=== PATIENT | male | born 2000 | race Caucasian/White ===

== ENCOUNTER 2018-07-09 23:39 | Emergency (ER) | payer OTHER ==
--- NOTE | 2018-07-10 00:02 | EDPHY ---
H & P Stated Complaint: fell about 8ft and hurt mid back Time Seen by Provider: 07/10/18 00:02 HPI/ROS: HPI CHIEF COMPLAINT: Right flank pain. Fall 8 ft. HISTORY OF PRESENT ILLNESS: This patient 17-year-old male, otherwise healthy, presents emergency room with right flank pain. Patient states that he was walking and walked over a covered window well it had a rug overt he did not realize this. He fell approximately 7 to 8 ft landing on his back. At the bottom of the window well was a cinder block. He struck the right CVA region with this. He has focal pain over his right CVA region. Denies chest pain shortness of breath. Denies headache. Denies neck pain. Denies extremity pain. Past Medical History: Denies significant medical history Past Surgical History: Denies significant surgical Social History: Denies drugs alcohol tobacco. Family History: Noncontributory. ROS REVIEW OF SYSTEMS: 10 Systems were reviewed and negative with the exception of the elements mentioned in the history of present illness. Exam Constitutional triage nursing summary reviewed, vital signs reviewed, awake/ alert. Eyes normal conjunctivae and sclera, EOMI, PERRLA. HENT normal inspection, atraumatic, moist mucus membranes, no epistaxis, neck supple/ no meningismus, no raccoon eyes. Respiratory clear to auscultation bilaterally, normal breath sounds, no respiratory distress, no wheezing. Cardiovascular rate normal, regular rhythm, no murmur, no edema, distal pulses normal. Gastrointestinal soft, non-tender, no rebound, no guarding, normal bowel sounds, no distension, no pulsatile mass. Genitourinary mild tender palpation right CVA region. Musculoskeletal no midline vertebral tenderness, full range of motion, no calf swelling, no tenderness of extremities, no meningismus, good pulses, neurovascularly intact. Skin pink, warm, & dry, no rash, skin atraumatic. Neurologic awake, alert and oriented x 3, AAOx3, moves all 4 extremities equally, motor intact, sensory intact, CN II-XII intact, normal cerebellar, normal vision, normal speech. Psychiatric normal mood/affect. Heme/Lymph/Immune no lymphadenopathy. Differential Diagnosis: Includes but is not limited to in a particular order acute abdominal injury solid organ injury, kidney injury, kidney laceration, musculoskeletal injury, soft tissue injury, contusion Medical Decision Making: Plan for this patient IV establishment IV fluid bolus , check basic blood work, urinalysis, CT scan abdomen pelvis with IV contrast for trauma rule out kidney laceration. Re-evaluation: CT scan abdomen pelvis with IV contrast shows no evidence of acute traumatic injury specifically no kidney laceration. No evidence of intra-abdominal injury. Patient's urinalysis pending he initially gives a dirty urine catch. 0211: Patient re-evaluated resting comfortably at this time. Patient in no acute distress. Has some soft tissue swelling to his right back. Recommend ice , anti-inflammatory pain medicine. Additionally a limited supply of Soquel will be given for severe pain. Urinalysis reviewed. The 1st urinalysis was dirty catch. 2nd urinalysis shows no blood. CT scan abdomen pelvis with IV contrast shows no evidence of acute trauma. Plan for ice, rest, anti-inflammatory pain medicine, narcotic pain medicine. Return precautions discussed. Source: Patient - Personal History Current Tetanus/Diphtheria Vaccine: Yes Current Tetanus Diphtheria and Acellular Pertussis (TDAP): Yes - Medical/Surgical History Hx Asthma: No Hx Chronic Respiratory Disease: No Hx Diabetes: No Hx Cardiac Disease: No Hx Renal Disease: No Hx Cirrhosis: No Hx Alcoholism: No Hx HIV/AIDS: No Hx Splenectomy or Spleen Trauma: No Other PMH: tonsillectomy - Social History Smoking Status: Never smoked Constitutional: Initial Vital Signs Temperature (C) 37.3 C 07/09/18 23:41 Heart Rate 92 07/09/18 23:41 Respiratory Rate 16 07/09/18 23:41 Blood Pressure 121/74 H 07/09/18 23:41 O2 Sat (%) 96 07/09/18 23:41 O2 Delivery Mode Room Air Allergies/Adverse Reactions: No Known Allergies Allergy (Unverified 07/09/18 23:45) Home Medications: Medication Instructions Recorded Hydrocodone/APAP 5/325 [Soquel 1 - 2 tab PO Q4H PRN #10 tab 07/10/18 5/325] Ibuprofen [Motrin (*)] 800 mg PO Q6-8PRN #10 tab 07/10/18 Medical Decision Making - Data Points Laboratory Results: Laboratory Results 07/10/18 00:17 07/10/18 00:17 07/10/18 07/10/18 07/10/18 02:10 01:45 00:17 WBC RBC Hgb Hct MCV MCH MCHC RDW Plt Count MPV Neut % (Auto) Lymph % (Auto) [place] % (Auto) Eos % (Auto) Baso % (Auto) Nucleat RBC Rel Count Absolute Neuts (auto) Absolute Lymphs (auto) Absolute Monos (auto) Absolute Eos (auto) Absolute Basos (auto) Absolute Nucleated RBC Immature Gran % Immature Gran # PT INR APTT Sodium 141 mEq/L mEq/L (135-145) Potassium 4.6 mEq/L mEq/L (3.3-5.0) Chloride 102 mEq/L mEq/L (97-110) Carbon Dioxide 28 mEq/l mEq/l (22-31) Anion Gap 11 mEq/L mEq/L (8-16) BUN 20 mg/dL mg/dL (7-23) Creatinine 1.0 mg/dL mg/dL (0.7-1.3) Estimated GFR > 60 Glucose 103 mg/dL H mg/dL (70-100) Calcium 10.3 mg/dL mg/dL (8.5-10.4) Total Bilirubin 0.9 mg/dL mg/dL (0.1-1.4) Conjugated Bilirubin 0.2 mg/dL mg/dL (0.0-0.5) Unconjugated Bilirubin 0.7 mg/dL mg/dL (0.0-1.1) AST 56 IU/L IU/L (17-59) ALT 63 IU/L IU/L (21-72) Alkaline Phosphatase 90 IU/L IU/L (38-126) Total Protein 8.3 g/dL H g/dL (6.3-8.2) Albumin 4.7 g/dL g/dL (3.5-5.0) Lipase 140 IU/L IU/L (23-300) Urine Color YELLOW YELLOW Urine Appearance HAZY HAZY Urine pH 5.0 5.0 (5.0-7.5) (5.0-7.5) Ur Specific [place] > 1.060 H > 1.035 H (1.002-1.030) (1.002-1.030) Urine Protein NEGATIVE 1+ H (NEGATIVE) (NEGATIVE) Urine Ketones TRACE H TRACE H (NEGATIVE) (NEGATIVE) Urine Blood NEGATIVE NEGATIVE (NEGATIVE) (NEGATIVE) Urine Nitrate NEGATIVE NEGATIVE (NEGATIVE) (NEGATIVE) Urine Bilirubin NEGATIVE NEGATIVE (NEGATIVE) (NEGATIVE) Urine Urobilinogen 2.0 EU H EU 2.0 EU H EU (0.2-1.0) (0.2-1.0) Ur Leukocyte Esterase NEGATIVE TRACE H (NEGATIVE) (NEGATIVE) Urine RBC 10-15 /hpf H /hpf (0-3) Urine WBC 25-50 /hpf H /hpf (0-3) Ur Epithelial Cells NONE SEEN /lpf /lpf (NONE-1+) Urine Mucus 3+ /lpf H /lpf (NONE-1+) Urine Glucose NEGATIVE NEGATIVE (NEGATIVE) (NEGATIVE) 07/10/18 07/10/18 00:17 00:17 WBC 10.28 10^3/uL H 10^3/uL (3.80-9.50) RBC 5.35 10^6/uL 10^6/uL (4.40-6.38) Hgb 15.7 g/dL g/dL (13.7-17.5) Hct 45.4 % % (40.0-51.0) MCV 84.9 fL fL (81.5-99.8) MCH 29.3 pg pg (27.9-34.1) MCHC 34.6 g/dL g/dL (32.4-36.7) RDW 12.6 % % (11.5-15.2) Plt Count 293 10^3/uL 10^3/uL (150-400) MPV 9.7 fL fL (8.7-11.7) Neut % (Auto) 69.3 % % (39.3-74.2) Lymph % (Auto) 22.5 % % (15.0-45.0) [place] % (Auto) 7.3 % % (4.5-13.0) Eos % (Auto) 0.1 % L % (0.6-7.6) Baso % (Auto) 0.4 % % (0.3-1.7) Nucleat RBC Rel Count 0.0 % % (0.0-0.2) Absolute Neuts (auto) 7.13 10^3/uL H 10^3/uL (1.70-6.50) Absolute Lymphs (auto) 2.31 10^3/uL 10^3/uL (1.00-3.00) Absolute Monos (auto) 0.75 10^3/uL 10^3/uL (0.30-0.80) Absolute Eos (auto) 0.01 10^3/uL L 10^3/uL (0.03-0.40) Absolute Basos (auto) 0.04 10^3/uL 10^3/uL (0.02-0.10) Absolute Nucleated RBC 0.00 10^3/uL 10^3/uL (0-0.01) Immature Gran % 0.4 % % (0.0-1.1) Immature Gran # 0.04 10^3/uL 10^3/uL (0.00-0.10) PT 14.9 SEC SEC (12.0-15.0) INR 1.15 (0.83-1.16) APTT 31.2 SEC SEC (23.0-38.0) Sodium Potassium Chloride Carbon Dioxide Anion Gap BUN Creatinine Estimated GFR Glucose Calcium Total Bilirubin Conjugated Bilirubin Unconjugated Bilirubin AST ALT Alkaline Phosphatase Total Protein Albumin Lipase Urine Color Urine Appearance Urine pH Ur Specific [place] Urine Protein Urine Ketones Urine Blood Urine Nitrate Urine Bilirubin Urine Urobilinogen Ur Leukocyte Esterase Urine RBC Urine WBC Ur Epithelial Cells Urine Mucus Urine Glucose Medications Given: Discontinued Medications Hydromorphone HCl (Dilaudid) 0.5 mg IVP EDNOW ONE Stop: 07/10/18 00:11 Last Admin: 07/10/18 00:25 Dose: 0.5 mg Sodium Chloride (Ns) 1,000 mls @ 0 mls/hr IV EDNOW ONE; Wide Open PRN Reason: Protocol Stop: 07/10/18 00:11 Last Admin: 07/10/18 00:24 Dose: 1,000 mls Ondansetron HCl (Zofran) 4 mg IVP EDNOW ONE Stop: 07/10/18 00:11 Last Admin: 07/10/18 00:25 Dose: 4 mg Departure - Departure Disposition: Home, Routine, Self-Care Clinical Impression: Flank pain Condition: Good Instructions: Contusion in Adults (ED), Flank Pain (ED) Additional Instructions: 1. Make sure you ice this 30 min on 30 min off for the next 12-24 hours 2. Anti-inflammatory pain medicine for mild pain 3. Soquel for severe pain 4. Return emergency room if worsening symptoms. Referrals: ERNESTO VIDAL MD [Primary Care Provider] - As per Instructions Prescriptions: Hydrocodone/APAP 5/325 [So[place] 5/325] 1 - 2 tab PO Q4H PRN #10 tab PRN Reason: Pain, Moderate Ibuprofen [Motrin (*)] 800 mg PO Q6-8PRN #10 tab
[2018-07-10] MEDS ORDERED: NS 1,000 ML IV ONE (00:10)
[2018-07-10] MEDS ORDERED: HYDROmorphONE/DILAUDID 2 MG/ML INJ IVP ONE (00:10)
[2018-07-10] MEDS ORDERED: ONDANSETRON 4 MG/2 ML VIAL IVP ONE (00:10)
[2018-07-10 00:24] LABS: PLATELET COUNT 293 10^3/uL (150-400)
[2018-07-10 00:32] LABS: INR 1.15 (0.83-1.16); PROTIME(PATIENT) 14.9 SEC (12.0-15.0)
[2018-07-10] MEDS ORDERED: HYDROCOD/APAP 5/325 PREPACK#6 BTL TAKEHOME ONE ×2 (02:38)
[2018-07-10 02:46] VITALS: BP 105/58
== END 2018-07-10 02:45 | disposition home or self-care (01) ==
DX: M54.9 Dorsalgia, unspecified (principal); W17.2XXA Fall into hole, initial encounter; Y99.8 Other external cause status; E86.9 Volume depletion, unspecified
CPT/HCPCS: 96374; J1170; J2405